=== PATIENT | male | born 1945 | race Caucasian/White ===

== ENCOUNTER → 2023-05-31 | Outpatient (CLI) | payer MEDICARE ==
--- NOTE | 2023-05-31 13:31 | FL ---
EXAMINATION TYPE: FL barium swallow DATE OF EXAM: 05/31/2023 CLINICAL INDICATION: 77-year-old male difficulty swallowing and reflux for 2 to 3 months. R13.10 DYS PHAGIA COMPARISON: None DAP 595.82 mGycm2 FL TIME 3:02 minutes 49 images obtained. FINDINGS: There is anterior endplate spondylosis at C4-C5 causing slight impression on the back wall of the hyp opharynx without significantly significant narrowing. However, in addition, there is moderate hypertr ophy of the cricopharyngeus. The swallowing mechanism is normal. The thoracic portion has a normal course and caliber. There are mild tertiary peristaltic waves by es sentially absent secondary stripping waves. This results in pooling of contrast throughout the length of the esophagus when the patient is prone/supine. Delayed clearance from the distal third esophagus when the patient is upright. The mucosa is normal and no persistent filling defect is encountered. No hiatal hernia is present. No gastroesophageal reflux is identified during the course of the exam. IMPRESSION: 1. Moderate CP muscle hypertrophy may in part contribute to the patient's symptoms. 2. Moderate to severe esophageal dysmotility with absent secondary stripping waves. This results in p ooling of contrast throughout the length of the esophagus when the patient is prone/supine. There is delayed clearance from the distal third esophagus when the patient is upright. 3. No hiatal hernia, mucosal lesion, or stricture is seen.
== END | disposition home or self-care (01) ==
LOC: RADUSWWP 08:57
PROVIDERS: ATTEND Surgery
DX: K22.4 Dyskinesia of esophagus (principal); K21.9 Gastro-esophageal reflux disease without esophagitis; J39.2 Other diseases of pharynx; R13.10 Dysphagia, unspecified
CPT/HCPCS: 74220

== ENCOUNTER 2024-05-03 09:02 | Emergency (ER) | payer MEDICARE ==
[2024-05-03] MEDS: ACETAMINOPHEN TAB 500 MG TAB PO STA (09:36)
--- NOTE | 2024-05-03 09:42 | ED ---
URI HPI - General Chief Complaint: Upper Respiratory Infection Stated Complaint: Congestion,Dizziness Time Seen by Provider: 05/03/24 09:20 Source: patient, family, RN notes reviewed Mode of arrival: ambulatory Limitations: no limitations - History of Present Illness Initial Comments: This is a 78-year-old male who presents to the emergency department for coughing and congestion. States that it started a week ago. The cough is described as wet and mildly productive. States that it is worse at night and he is unable to lay flat. He does have some shortness of breath and pain in the chest when he coughs. He does also report some swelling in his legs that seems to be getting worse. Denies any sick contacts. He has not measured any fevers at home. MD Complaint: cough, nasal congestion - Related Data Previous Rx's Medication Instructions Recorded Albuterol Sulfate [Albuterol 1 - 2 puff PO Q4-6H PRN #8.5 gm 05/03/24 Sulfate Hfa] Azithromycin [Zithromax] 250 mg PO DIRECTED 5 Days #6 tab 05/03/24 Benzonatate [Tessalon Perle] 200 mg PO TID PRN #20 capsule 05/03/24 Allergies Allergy/AdvReac Type Severity Reaction Status Date / Time tetracycline Allergy Rash/Hives Verified 05/03/24 09:10 Review of Systems ROS Statement: Those systems with pertinent positive or pertinent negative responses have been documented in the HPI. ROS Other: All systems not noted in ROS Statement are negative. Past Medical History Past Medical History: Hyperlipidemia, Hypertension Past Surgical History: Cholecystectomy Smoking Status: Never smoker General Exam Limitations: no limitations General appearance: alert, in no apparent distress Head exam: Present: atraumatic, normocephalic, normal inspection Respiratory exam: Present: rhonchi Cardiovascular Exam: Present: regular rate, normal rhythm Neurological exam: Present: alert, oriented X3, CN II-XII intact Psychiatric exam: Present: normal affect, normal mood Skin exam: Present: warm, dry, intact, normal color. Absent: rash Course Vital Signs 05/03/24 05/03/24 05/03/24 09:06 09:30 10:00 Temperature 100.2 F H 100.2 F H Pulse Rate 86 80 77 Respiratory 20 18 18 Rate Blood Pressure 191/83 156/85 156/85 O2 Sat by Pulse 92 L 94 L 94 L Oximetry 05/03/24 05/03/24 05/03/24 10:30 10:58 11:00 Temperature 99.6 F Pulse Rate 79 82 Respiratory 18 18 Rate Blood Pressure 138/69 142/65 O2 Sat by Pulse 93 L Oximetry 05/03/24 05/03/24 05/03/24 11:30 11:39 11:49 Temperature 99.1 F Pulse Rate 71 72 86 Respiratory 18 18 Rate Blood Pressure 148/71 146/54 O2 Sat by Pulse 92 L 93 L Oximetry Medical Decision Making - Medical Decision Making This is a 78-year-old male who presents to the emergency department for coughing and congestion. Was pt. sent in by a medical professional or institution? @ -No Did you speak to anyone other than the patient for history? @ -No Did you review nursing and triage notes? @ -Yes, and I agree, it is accurate with regards to the patient's symptoms. Were old charts reviewed? @ -No Differential Diagnosis? @ -Differential Cough: Influenza, Covid, RSV, croup, allergic rhinitis, GERD, pneumonia, bronchitis, COPD, viral pharyngitis, streptococcal pharyngitis, this is not meant to be an all-inclusive list. EKG interpreted by me (3pts min.)? @ -EKG interpreted by me demonstrating the following: Sinus rhythm. Ventricular rate 81 bpm, FL interval 189 ms, QRS duration 126 ms, QTc 404 ms. X-rays interpreted by me (1pt min.)? @ -Chest x-ray obtained. My interpretation identifies a right lower lobe opacity. CT interpreted by me (1pt min.)? @ -Not obtained U/S interpreted by me (1pt. min.)? @ -Not obtained What testing was considered but not performed? (CT, X-rays, U/S, labs)? Why? @ -None What meds were considered but not given? Why? @ -None Did you discuss the management of the patient with other professionals? @ -No Did you reconcile home meds? @ -No Was smoking cessation discussed for >3mins.? @ -No Was critical care preformed (if so, how long)? @ -No Were there social determinants of health that impacted care today? How? (Homelessness, low income, unemployed, alcoholism, drug addiction, transportation, low edu. Level, literacy, decrease access to med. care, snf, rehab)? @ -No Was there de-escalation of care discussed even if they declined? (Discuss DNR or withdrawal of care, Hospice)? @ -No What co-morbidities impacted this encounter? (DM, HTN, Smoking, COPD, CAD, Cancer, CVA, Hep., AIDS, mental health diagnosis, sleep apnea, morbid obesity)? @ -HTN, HLD Was patient admitted / discharged? @ -Discharged. Lab work demonstrates leukocytosis with a white blood cell count of 15. His temperature was slightly elevated on arrival at 100.2 F. Patient positive for influenza A. Chest x-ray revealed right lower lobe opacities concerning for pneumonia. Patient's symptoms were well-controlled in the emergency department and when discussing disposition states that he would be more comfortable at home. He was given 2 g of ceftriaxone and 500 mg of azithromycin in the emergency department. DuoNeb breathing treatment administered as well. Prescription for azithromycin, Tessalon Perles, and an albuterol inhaler provided. However, discussed that because he is also positive for influenza A, his symptoms may not completely resolve with the antibiotic. Advised ibuprofen and Tylenol as needed for any additional fevers. He was given very strict return parameters and advised to have close follow-up with his PCP. Patient discharged home in stable condition. Case discussed with ED attending Dr. Perez. Return precautions reviewed in depth, the patient is instructed to return to the emergency department with any new, worsening, or concerning symptoms. Patient verbalized understanding. Undiagnosed new problem with uncertain prognosis? @ -None Drug Therapy requiring intensive monitoring for toxicity (Heparin, Nitro, Insulin, Cardizem)? @ -None Were any procedures done? @ -None Diagnosis/symptom? @ -Influenza A, pneumonia Acute, or Chronic, or Acute on Chronic? @ -Acute Uncomplicated (without systemic symptoms) or Complicated (systemic symptoms)? @ -Uncomplicated Side effects of treatment? @ -None Exacerbation, Progression, or Severe Exacerbation] @ -Not applicable Poses a threat to life or bodily function? @ -Unlikely - Lab Data Result diagrams: 05/03/24 09:33 05/03/24 09:33 Lab Results 05/03/24 05/03/24 05/03/24 Range/Units 09:33 09: 09:33 WBC 15.0 H (3.8-10.6) k/uL RBC 4.86 (4.30-5.90) m/uL Hgb 15.2 (13.0-17.5) gm/dL Hct 45.0 (39.0-53.0) % MCV 92.6 (80.0-100.0) fL MCH 31.3 (25.0-35.0) pg MCHC 33.9 (31.0-37.0) g/dL RDW 13.7 (11.5-15.5) % Plt Count 227 (150-450) k/uL MPV 8.1 Neutrophils % 90 % Lymphocytes % 4 % Monocytes % 4 % Eosinophils % 2 % Basophils % 0 % Neutrophils # 13.4 H (1.3-7.7) k/uL Lymphocytes # 0.6 L (1.0-4.8) k/uL Monocytes # 0.7 (0-1.0) k/uL Eosinophils # 0.2 (0-0.7) k/uL Basophils # 0.0 (0-0.2) k/uL Sodium 134 L (137-145) mmol/L Potassium 4.2 (3.5-5.1) mmol/L Chloride 100 (98-107) mmol/L Carbon Dioxide 28 (22-30) mmol/L Anion Gap 6 mmol/L BUN 19 (9-20) mg/dL Creatinine 0.73 (0.66-1.25) mg/dL Est GFR (CKD-EPI)AfAm >90 (>60 ml/min/1.73 sqM) Est GFR (CKD-EPI)NonAf 89 (>60 ml/min/1.73 sqM) Glucose 118 H (74-99) mg/dL Plasma Lactic Acid Gian 1.6 (0.7-2.0) mmol/L Calcium 9.2 (8.4-10.2) mg/dL Total Bilirubin 0.7 (0.2-1.3) mg/dL AST 32 (17-59) U/L ALT 28 (4-49) U/L Alkaline Phosphatase 93 (38-126) U/L Troponin I (0.000-0.034) ng/mL NT-Pro-B Natriuret Pep 300 pg/mL Total Protein 6.4 (6.3-8.2) g/dL Albumin 3.8 (3.5-5.0) g/dL Influenza Type A (PCR) (Not Detectd) Influenza Type B (PCR) (Not Detectd) RSV (PCR) (Not Detectd) SARS-CoV-2 (PCR) (Not Detectd) 05/03/24 05/03/24 Range/Units 09:33 09:33 WBC (3.8-10.6) k/uL RBC (4.30-5.90) m/uL Hgb (13.0-17.5) gm/dL Hct (39.0-53.0) % MCV (80.0-100.0) fL MCH (25.0-35.0) pg MCHC (31.0-37.0) g/dL RDW (11.5-15.5) % Plt Count (150-450) k/uL MPV Neutrophils % % Lymphocytes % % Monocytes % % Eosinophils % % Basophils % % Neutrophils # (1.3-7.7) k/uL Lymphocytes # (1.0-4.8) k/uL Monocytes # (0-1.0) k/uL Eosinophils # (0-0.7) k/uL Basophils # (0-0.2) k/uL Sodium (137-145) mmol/L Potassium (3.5-5.1) mmol/L Chloride (98-107) mmol/L Carbon Dioxide (22-30) mmol/L Anion Gap mmol/L BUN (9-20) mg/dL Creatinine (0.66-1.25) mg/dL Est GFR (CKD-EPI)AfAm (>60 ml/min/1.73 sqM) Est GFR (CKD-EPI)NonAf (>60 ml/min/1.73 sqM) Glucose (74-99) mg/dL Plasma Lactic Acid Gian (0.7-2.0) mmol/L Calcium (8.4-10.2) mg/dL Total Bilirubin (0.2-1.3) mg/dL AST (17-59) U/L ALT (4-49) U/L Alkaline Phosphatase (38-126) U/L Troponin I <0.012 (0.000-0.034) ng/mL NT-Pro-B Natriuret Pep pg/mL Total Protein (6.3-8.2) g/dL Albumin (3.5-5.0) g/dL Influenza Type A (PCR) Detected A (Not Detectd) Influenza Type B (PCR) Not Detected (Not Detectd) RSV (PCR) Not Detected (Not Detectd) SARS-CoV-2 (PCR) Not Detected (Not Detectd) - Radiology Data Radiology results: report reviewed, image reviewed Disposition Clinical Impression: Pneumonia, Influenza A Disposition: HOME SELF-CARE Instructions (If sedation given, give patient instructions): Influenza (ED), Pneumonia (ED) Additional Instructions: Return to the emergency department with any new, worsening, or concerning symptoms. Take the antibiotic as prescribed for 5 days. You can take the Tessalon Perles up to every 8 hours as needed for coughing. Use the albuterol inhaler every 4-6 hours as needed for shortness of breath and coughing. Alternate with ibuprofen and Tylenol as needed for any additional fevers. Follow up with your primary care provider in 1-2 days. Prescriptions: Albuterol Sulfate [Albuterol Sulfate Hfa] 1 - 2 puff PO Q4-6H PRN #8.5 gm PRN Reason: Shortness Of Breath Benzonatate [Tessalon Perle] 200 mg PO TID PRN #20 capsule PRN Reason: Cough Azithromycin [Zithromax] 250 mg PO DIRECTED 5 Days #6 tab Is patient prescribed a controlled substance at d/c from ED?: No Referrals: Evens Vazquez [Primary Care Provider] - 1-2 days Time of Disposition: 11:36
[2024-05-03 09:44] LABS: Basophils % (A) 0 %; Eosinophils # (A) 0.2 k/uL (0-0.7); Eosinophils % (A) 2 %; HGB 15.2 gm/dL (13.0-17.5); Lymphocytes # (A) 0.6 k/uL (1.0-4.8); Lymphocytes % (A) 4 %; MCH 31.3 pg (25.0-35.0); MCHC 33.9 g/dL (31.0-37.0); MCV 92.6 fL (80.0-100.0); Mean Platelet Volume 8.1; Monocytes # (A) 0.7 k/uL (0-1.0); Monocytes % (A) 4 %; Neutrophils # (A) 13.4 k/uL (1.3-7.7); Neutrophils % (A) 90 %; Platelet Count 227 k/uL (150-450); RBC 4.86 m/uL (4.30-5.90); RDW 13.7 % (11.5-15.5)
--- NOTE | 2024-05-03 09:50 | XR ---
EXAMINATION TYPE: XR chest 2V DATE OF EXAM: 05/03/2024 9:41 AM COMPARISON: None TECHNIQUE: XR chest 2V Frontal and lateral views of the chest. CLINICAL INDICATION:Male, 78 years old with history of Cough; FINDINGS: Lungs/Pleura: No pleural effusion or pneumothorax. Right lower lobe patchy airspace opacities. Biapic al pleural thickening. Pulmonary vascularity: Unremarkable. Heart/mediastinum: Cardiomediastinal silhouette is unremarkable. Musculoskeletal: No acute osseous pathology. IMPRESSION: Right lower lobe patchy airspace opacities concerning for pneumonia. [facility], , 05/03/2024 9:48 AM
[2024-05-03 09:54] LABS: ALT 28 U/L (4-49); African American GFR (CKD) >90 (>60 ml/min/1.73 sqM); Albumin 3.8 g/dL (3.5-5.0); Anion Gap 6 mmol/L; Blood Urea Nitrogen 19 mg/dL (9-20); Calcium 9.2 mg/dL (8.4-10.2); Carbon Dioxide 28 mmol/L (22-30); Chloride 100 mmol/L (98-107); Glucose 118 mg/dL (74-99); Non-African American GFR(CKD) 89 (>60 ml/min/1.73 sqM); Sodium 134 mmol/L (137-145); Total Bilirubin 0.7 mg/dL (0.2-1.3); Total Protein 6.4 g/dL (6.3-8.2)
[2024-05-03 09:55] LABS: AST 32 U/L (17-59); Alkaline Phosphatase 93 U/L (38-126); Potassium 4.2 mmol/L (3.5-5.1)
[2024-05-03 10:01] LABS: NT-Pro-B-Type Natriuretic Pept 300 pg/mL
[2024-05-03 10:18] LABS: Influenza A Detected (Not Detectd); Influenza B Not Detected (Not Detectd); RSV Not Detected (Not Detectd)
[2024-05-03 10:19] VITALS: RESP 18
[2024-05-03] MEDS: BENZONATATE 100 MG CAP PO STA (10:38)
[2024-05-03] MEDS: cefTRIAXone IN SWFI 1,000 MG/10 ML SYRINGE IVP STA ×2 (10:38)
[2024-05-03] MEDS: AZITHROMYCIN 500 MG TAB PO STA (10:38)
[2024-05-03] MEDS: IBUPROFEN 800 MG TAB PO STA (11:07)
[2024-05-03] MEDS: SODIUM CHLORIDE 0.9% 1,000 ML IV STA (11:08)
[2024-05-03] MEDS: IPRATROPIUM-ALBUTEROL 3 ML NEB INHALATION STA (11:29)
[2024-05-03] MEDS: ONDANSETRON 4 MG ODT STARTER PACK 2 TAB BTL PO STA (11:42)
[2024-05-03] MEDS: DEXAMETHASONE SOD PHOSPHATE 10 MG/ML 1 ML VIAL IVP STA (11:42)
[2024-05-03 11:50] VITALS: BP 146/54; PULSE 86; TEMP 99.1
== END 2024-05-03 11:56 | disposition home or self-care (01) ==
LOC: EC 09:02
DX: J10.00 Influenza due to other identified influenza virus with unspecified type of pneumonia (principal); J18.9 Pneumonia, unspecified organism; I10 Essential (primary) hypertension; E78.5 Hyperlipidemia, unspecified; Z88.8 Allergy status to other drugs, medicaments and biological substances
CPT/HCPCS: 36415; 94640; 83880; 80053; 83605; 84484; 85025; 87636; 71046; 99284; 96374; 96375; 96361; J1100; J0696; S0119

== ENCOUNTER → 2024-09-09 | Outpatient (CLI) | payer MEDICARE ==
[2024-09-09 15:21] LABS: African American GFR (CKD) >90 (>60 ml/min/1.73 sqM); Blood Urea Nitrogen 16 mg/dL (9-20); Non-African American GFR(CKD) 82 (>60 ml/min/1.73 sqM)
--- NOTE | 2024-09-12 18:16 | CT ---
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 Reconstructed images are reviewed on [employer] computer in the coronal plane. Contrast used:1234.9 mL of Isovue 300 with IV Contrast, (none if empty) Oral contrast used: (none if empty) CT DLP: 1234.9 mGycm, Automated exposure control for dose reduction was used. FINDINGS: There is a 0.9 cm hypodense lesion with the right thyroid. Additional evaluation with ultrasound can be performed. No suspicious superior mediastinal mass is evident. No thymic masses are evident No suspicious lung nodules or focal infiltrates are present. No enlarged mediastinal or hilar adenopathy is evident. The ascending aorta diameter at the level o f the main pulmonary artery is 4.0 cm. The main pulmonary artery diameter at the bifurcation is 3.2 cm. No significant coronary artery calcifications. Limited CT sections are obtained through the upper abdomen. Right adrenal gland is thickened at 1.7 c m. Density is -43 compatible with fat. 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 L eft adrenal gland appears normal. Cortical renal cysts are present in the superior pole left kidney measuring 2.9 cm exophytic cyst partially visualized anterior mid right kidney measuring 6.3 cm. IMPRESSION: 1. No suspicious changes to suggest thymoma. 2. 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
== END | disposition home or self-care (01) ==
LOC: RADCTMAIN 14:46
PROVIDERS: ATTEND Psychiatry & Neurology Neurology
DX: G70.01 Myasthenia gravis with (acute) exacerbation (principal); D49.89 Neoplasm of unspecified behavior of other specified sites
CPT/HCPCS: 82565; 84520; 71260; 36415; Q9967

== ENCOUNTER → 2024-10-24 | Outpatient (CLI) | payer MEDICARE ==
[~2024-10-24] MED LIST: SODIUM CHLORIDE 0.9% 250 ML in EMPTY BAG 1 BAG IV PRN
[2024-10-24 10:26] VITALS: BP 156/75; PULSE 57; RESP 14
[2024-10-24] MEDS: SODIUM CHLORIDE 0.9% IVPB NR (10:30)
[2024-10-24] MEDS: METHYLPREDNISOLONE SOD SUCCIN IVPB NR (10:30)
[2024-10-24] MEDS: SODIUM CHLORIDE 0.9% 500 ML 500 ML in EMPTY BAG 1 BAG IV PRN (10:30)
== END ==
LOC: PROCWHC3 09:58
PROVIDERS: ATTEND Psychiatry & Neurology Neurology
DX: G70.00 Myasthenia gravis without (acute) exacerbation (principal)
CPT/HCPCS: 96365; 96366; J2919